=== PATIENT | male | born 1985 | race Hispanic/Latino ===

== ENCOUNTER 2017-08-09 13:57 | Emergency (ER) | payer MEDICAID, OTHER ==
[2017-08-09 13:57] VITALS: BMI 27.3
[2017-08-09 14:01] VITALS: BP 114/60; PULSE 74; RESP 16; TEMP 98.1; O2SAT 98
--- NOTE | 2017-08-09 14:51 | ED PDOC ---
HPI: Psych/Substance Abuse Time Seen by Provider: 08/09/17 14:07 Chief Complaint (Nursing): Psychiatric Evaluation Chief Complaint (Provider): Clearance for incarceration History Per: Patient Additional Complaint(s): Pt brought in by [place] [employer] for medical and psych clearance for incarceration. Patient states she has been feeling depressed and suicidal for a few months. Denies plan or intent. No physical complaints Past Medical History Reviewed: Nursing Documentation, Vital Signs Vital Signs: Last Vital Signs Temp 98.1 F 08/09/17 13:59 Pulse 74 08/09/17 13:59 Resp 16 08/09/17 13:59 BP 114/60 08/09/17 13:59 Pulse Ox 98 08/09/17 13:59 - Medical History PMH: No Chronic Diseases Denies: Depression - Surgical History Surgical History: No Surg Hx - Family History Family History: States: Unknown Family Hx - Living Arrangements Living Arrangements: With Family - Social History Current smoker - smoking cessation education provided: No Alcohol: Social Drugs: Cannabis - Immunization History Hx Tetanus Toxoid Vaccination: No Hx Influenza Vaccination: No Hx Pneumococcal Vaccination: No - Home Medications Home Medications: Ambulatory Orders Medication Instructions Recorded Cyclobenzaprine [Cyclobenzaprine 10 mg PO TID PRN #20 tab 06/25/17 HCl] Naproxen [Naprosyn] 1 tab PO BID PRN #20 tab 06/25/17 - Allergies Allergies/Adverse Reactions: Allergies Allergy/AdvReac Type Severity Reaction Status Date / Time No Known Allergies Allergy Verified 03/29/17 11:41 Review of Systems ROS Statement: Except As Marked, All Systems Reviewed And Found Negative Physical Exam - Reviewed Nursing Documentation Reviewed: Yes Vital Signs Reviewed: Yes - Physical Exam Appears: Positive for: Well, Non-toxic, No Acute Distress Head Exam: Positive for: ATRAUMATIC, NORMAL INSPECTION, NORMOCEPHALIC Skin: Positive for: Normal Color, Warm, DRY Eye Exam: Positive for: EOMI, Normal appearance, PERRL ENT: Positive for: Normal ENT Inspection Neck: Positive for: Normal, Painless ROM Cardiovascular/Chest: Positive for: Regular Rate, Rhythm Respiratory: Positive for: CNT, Normal Breath Sounds Gastrointestinal/Abdominal: Positive for: Normal Exam, Bowel Sounds, Soft Back: Positive for: Normal Inspection Extremity: Positive for: Normal ROM Neurologic/Psych: Positive for: Alert, Oriented - ECG O2 Sat by Pulse Oximetry: 98 Medical Decision Making Medical Decision Making: [facility] at bedside upon Pt's arrival, as well as Erika from Crisis. Pt underwent evaluation. See notes. Disposition - Clinical Impression Clinical Impression: Anxiety - Patient ED Disposition Is Patient to be Admitted: No - Disposition Disposition: Discharged/Transfer to Law Enforcement Disposition Time: 14:51 Condition: STABLE Additional Instructions: Patient is medically and psychiatrically cleared for incarceration Instructions: Anxiety (ED) Forms: [employer] (Wol[place])
== END 2017-08-09 14:55 | disposition home or self-care (01) ==
LOC: H.ER 13:57
DX: F41.9 Anxiety disorder, unspecified (principal)